=== PATIENT | female | born 1985 ===

== ENCOUNTER 2019-01-01 19:18 | Inpatient (IN) | payer OTHER ==
[~2019-01-01] VITALS: Ht 170.2 cm; Wt 101.6 kg
[2019-01-01] MEDS ORDERED: PRENATAL TABLE1 EAC1 PO (23:47)
[2019-01-05] MEDS ORDERED: AMPICILLIN TRI500 MG PO (05:14)
[2019-01-05] MEDS ORDERED: NIFEDIPINE20 MG PO (05:14)
== END 2019-01-05 07:26 | DRG 833 ==
LOC: OB/GYN 19:18 → LDR 19:18 → OB/GYN 01-02 12:16
PROVIDERS: ADMIT Obstetrics & Gynecology
PROC: 4A1HXCZ Monitoring of Products of Conception, Cardiac Rate, External Approach (ICD-10-PCS; principal; 2019-01-01)
PROC: BU4CZZZ Ultrasonography of Uterus and Ovaries (ICD-10-PCS; 2019-01-01)
PROC: 4A1HXCZ Monitoring of Products of Conception, Cardiac Rate, External Approach (ICD-10-PCS; 2019-01-01)
DX: O60.03 Preterm labor without delivery, third trimester (principal); O24.410 Gestational diabetes mellitus in pregnancy, diet controlled

== ENCOUNTER 2019-01-08 20:05 | Outpatient (CLI) | payer OTHER ==
[~2019-01-08 20:05] MED LIST: AMPICILLIN TRI500 MG PO; NIFEDIPINE20 MG PO; PRENATAL TABLE1 EAC1 PO
== END 2019-01-09 07:56 | disposition home or self-care (01) ==
LOC: OBS/DEL 20:05
DX: O76 Abnormality in fetal heart rate and rhythm complicating labor and delivery (principal); O35.8XX0 Maternal care for other (suspected) fetal abnormality and damage, not applicable or unspecified

== ENCOUNTER 2019-03-12 22:23 | Outpatient (CLI) | payer OTHER | END 2019-03-13 10:56 | disposition home or self-care (01) | LOC: OBS/DEL 22:23 | DX: O63.0 Prolonged first stage (of labor) (principal); O76 Abnormality in fetal heart rate and rhythm complicating labor and delivery; O35.8XX0 Maternal care for other (suspected) fetal abnormality and damage, not applicable or unspecified; O24.410 Gestational diabetes mellitus in pregnancy, diet controlled ==

== ENCOUNTER 2019-03-18 05:21 | Inpatient (IN) | payer OTHER ==
[~2019-03-18] VITALS: Ht 170.2 cm; Wt 106.6 kg
== END 2019-03-20 14:35 | disposition home or self-care (01) | DRG 807 ==
LOC: LDR 05:21 → OB/GYN 05:21
PROVIDERS: ADMIT Obstetrics & Gynecology
PROC: 10E0XZZ Delivery of Products of Conception, External Approach (ICD-10-PCS; principal; 2019-03-18)
PROC: 10907ZC Drainage of Amniotic Fluid, Therapeutic from Products of Conception, Via Natural or Artificial Opening (ICD-10-PCS; 2019-03-18)
PROC: 3E033VJ Introduction of Other Hormone into Peripheral Vein, Percutaneous Approach (ICD-10-PCS; 2019-03-18)
PROC: 4A1HXCZ Monitoring of Products of Conception, Cardiac Rate, External Approach (ICD-10-PCS; 2019-03-18)
DX: O80 Encounter for full-term uncomplicated delivery (principal); Z37.0 Single live birth; Z3A.39 39 weeks gestation of pregnancy